=== PATIENT | female | born 1995 | race African-American/Black ===

== ENCOUNTER 2018-05-21 15:56 | Emergency (ER) | payer OTHER ==
[2018-05-21] MEDS ORDERED: CARBAMIDE PEROXIDE 6.5% OTIC DROPS LEFTEAR STA (16:21)
--- NOTE | 2018-05-21 17:40 | ED Physician Documentation ---
PD HPI HEENT - Stated complaint Stated Complaint: EAR PAIN - Chief complaint Chief Complaint: Heent - History obtained from History obtained from: Patient - History of Present Illness Timing - onset: How many weeks ago (2) Timing - details: Still present Location: Left ear Associated symptoms: Other (Decreased hearing.) Similar symptoms before: Treatment (Recently treated with amoxicillin and Cortisporin otic suspension.) - Additional information Additional information: The patient is a 23-year-old female who presents with decreased hearing in her left ear, stating it feels clogged. She was recently treated with amoxicillin and Cortisporin otic suspension for ear infection. She completed the treatment course 2 days ago. She denies fever, sore throat, or headache. She denies history of similar symptoms in the past. Review of Systems Constitutional: denies: Fever Eyes: denies: Irritation Ears: reports: Loss of hearing (left ear) Nose: denies: Congestion Throat: denies: Sore throat Respiratory: denies: Cough GI: denies: Nausea, Vomiting Skin: denies: Rash Musculoskeletal: denies: Neck pain Neurologic: denies: Headache PD PAST MEDICAL HISTORY - Past Medical History Past Medical History: No Endocrine/Autoimmune: None - Past Surgical History Past Surgical History: No - Allergies Allergies/Adverse Reactions: Allergies Allergy/AdvReac Type Severity Reaction Status Date / Time No Known Drug Allergies Allergy Verified 05/21/18 16:07 - Social History Does the pt smoke?: No Smoking Status: Never smoker Does the pt drink ETOH?: No Does the pt have substance abuse?: No - Immunizations Immunizations are current?: Yes PD ED PE NORMAL - Vitals Vital signs reviewed: Yes (normal) - General General: Alert and oriented X 3, Well developed/nourished - HEENT HEENT: Atraumatic, EOMI, Pharynx benign, Other (The left external ear canal is plugged with debris. Right tympanic membrane is nonerythematous.) - Neck Neck: Supple, no meningeal sign, No adenopathy - Cardiac Cardiac: RRR - Respiratory Respiratory: No respiratory distress, Clear bilaterally - Derm Derm: No rash - Neuro Neuro: Alert and oriented X 3, Normal speech Results - Vitals Vitals: Oxygen O2 Source Room air PD MEDICAL DECISION MAKING - ED course Complexity details: re-evaluated patient, considered differential, d/w patient ED course: The patient's presentation is significant for impaction of debris in the left ear canal. Treatment in the emergency room included disimpaction after administration of Cerumenex. Large quantities of debris were removed using an ear loops supplemented with irrigation. Following the above treatment, the patient's hearing ability improved. Tympanic membrane appears nonerythematous. I advised her to continue using Cortisporin otic suspension that have been previously prescribed. I discussed with her the diagnosis, outpatient follow-up , as well as potentially worrisome signs or symptoms that should prompt reevaluation in the emergency department. - Sepsis Event Vital Signs: Oxygen O2 Source Room air Departure - Departure Disposition: Home, Self Care Clinical Impression: Cerumen debris on tympanic membrane of left ear Left otitis externa Qualifiers: Otitis externa type: unspecified type Chronicity: acute Qualified Code(s): H60.502 - Unspecified acute noninfective otitis externa, left ear Condition: Stable Instructions: ED Otitis Externa Follow-Up: COLIN Greene [Provider Group] Comments: Continue to use Cortisporin otic suspension as previously prescribed. You can irrigate your ear with hydrogen peroxide. Follow up with your primary physician within 1-2 weeks. Call to schedule an appointment. Return to the emergency department if you develop increasing pain in your ear, or otherwise worsening symptoms. Discharge Date/Time: 05/21/18 17:49
[2018-05-21 17:50] VITALS: BP 109/59
== END 2018-05-21 17:49 | disposition home or self-care (01) ==
LOC: ED 15:56
DX: H61.22 Impacted cerumen, left ear (principal); H60.92 Unspecified otitis externa, left ear
CPT/HCPCS: 69210; 99283